=== PATIENT | male | born 1975 | race Caucasian/White ===

== ENCOUNTER 2017-05-29 20:06 | Emergency (ER) | payer OTHER ==
[2017-05-29] MEDS ORDERED: Sodium Chloride 0.9% 2.5 ML Syringe FLUSH PRN (20:26)
[2017-05-29] MEDS ORDERED: Sodium Chloride 0.9% 10 ML Syringe FLUSH PRN (20:26)
[2017-05-29] MEDS ORDERED: Ondansetron 4 MG/2 ML SDV IVPUSH ONE (20:27)
[2017-05-29] MEDS ORDERED: Sodium Chloride 0.9% 1,000 ML IV ONE (20:27)
[2017-05-29] MEDS ORDERED: Morphine 2 MG/ML Syringe IVPUSH ONE ×2 (20:27→22:10)
--- NOTE | 2017-05-29 20:32 | EDM.PDOC ---
<Mary Parsons - Last Filed: 05/29/17 20:28> ED HPI GENERAL MEDICAL PROBLEM - General Chief Complaint: Genitourinary Problem Stated Complaint: PT HAS GROIN PAIN Time Seen by Provider: 05/29/17 20:28 Source of Information: Reports: Patient History Limitations: Reports: No Limitations - History of Present Illness INITIAL COMMENTS - FREE TEXT/NARRATIVE: HISTORY AND PHYSICAL: 42-year-old male presents with right testicular pain History of Present Illness: []Patient has significant history of left groin pain and several surgical procedures to the left testicle along with previous torsion Patient has lived in [place] for one year. Recently was in [place] and [place] and this is where his surgeries have been completed Patient works mainly at a desk is not been lifting heavy objects, causing any other difficulties. Pain has worsened throughout the day. Review of Systems: As per history of present illness and below otherwise all systems reviewed and negative. Past medical history: As per history of present illness and as reviewed below otherwise noncontributory. Surgical history: As per history of present illness and as reviewed below otherwise noncontributory. Social history: No reported history of drug or alcohol abuse. Family history: As per history of present illness and as reviewed below otherwise noncontributory. Physical exam: Alert and oriented male, very well spoken. We can in full sentences without any shortness of breath. Nontoxic. HEENT: Atraumatic, normocehpalic, pupils reactive, negative for conjunctival pallor or scleral icterus, mucous membranes moist, throat clear, neck supple, nontender, trachea midline. Lungs: Clear to auscultation, breath sounds equal bilaterally, chest non tender. Heart: S1S2, regular, negative for clicks, rubs, or JVD. Abdomen: Soft, nondistended, nontender. Negative for masses or hepatossplenmegaly. Negative for costovertebral tenderness. Pelvis: Stable nontender. Genitourinary: Right testicle is exquisitely tender. No torsion is noted on examination. Rectal: Deferred Extremities: Atraumatic, negative for cords or calf pain. Neurovascular unremarkable. Neuro: Awake, alert, oriented. Cranial nerves II through XII unremarkable. Cerebellum unremarkable. Motor and sensory unremarkable throughout. Exam nonfocal. Diagnostics: [us right testicle] Therapeutics: [IV saline, Zofran, morphine] Impression: [Right Testicular pain] Plan: [] Definitive disposition and diagnosis as appropriate pending reevaluation and review of above. Right Groin Pain Score (Numeric/FACES): 8 - Related Data Allergies Allergy/AdvReac Type Severity Reaction Status Date / Time No Known Allergies Allergy Verified 05/29/17 20:26 Home Meds: Home Meds Doxycycline [Vibramycin] 100 mg PO Q12HR #20 cap 05/29/17 [Rx] Levothyroxine 1 tab PO DAILY 05/29/17 [History] Course - Vital Signs Last Recorded V/S: Last Vital Signs Temp 36.6 C 05/29/17 23:34 Pulse 63 05/29/17 23:34 Resp 18 05/29/17 23:34 BP 135/86 05/29/17 23:34 Pulse Ox 98 05/29/17 23:34 - Orders/Labs/Meds Orders: Active Orders 24 hr Category Date Time Status Scrotal Duplex Ltd [US] Routine Exams 05/29/17 20:52 Ordered Testicular US [Scrotum and Contents] [US] Stat Exams 05/29/17 20:26 Taken Saline Lock Insert [OM.PC] Stat Oth 05/29/17 20:26 Ordered Labs: Laboratory Tests 05/29/17 05/29/17 05/29/17 Range/Units 20:00 20:59 20:59 WBC 6.55 (4.0-11.0) K/uL RBC 5.09 (4.50-5.90) M/uL Hgb 14.8 (13.0-17.0) g/dL Hct 42.1 (38.0-50.0) % MCV 82.7 (80.0-98.0) fL MCH 29.1 (27.0-32.0) pg MCHC 35.2 (31.0-37.0) g/dL RDW Std Deviation 38.2 (28.0-62.0) fl RDW Coeff of Ronald 13 (11.0-15.0) % Plt Count 219 (150-400) K/uL MPV 9.60 (7.40-12.00) fL Neut % (Auto) 58.0 (48.0-80.0) % Lymph % (Auto) 31.1 (16.0-40.0) % [place] % (Auto) 8.9 (0.0-15.0) % Eos % (Auto) 1.5 (0.0-7.0) % Baso % (Auto) 0.5 (0.0-1.5) % Neut # (Auto) 3.8 (1.4-5.7) K/uL Lymph # (Auto) 2.0 (0.6-2.4) K/uL [place] # (Auto) 0.6 (0.0-0.8) K/uL Eos # (Auto) 0.1 (0.0-0.7) K/uL Baso # (Auto) 0.0 (0.0-0.1) K/uL Nucleated RBC % 0.0 /100WBC Nucleated RBCs # 0 K/uL Sodium 140 (136-146) mmol/L Potassium 4.5 (3.5-5.1) mmol/L Chloride 107 (98-110) mmol/L Carbon Dioxide 25 (21-31) mmol/L BUN 11 (6.0-23.0) mg/dL Creatinine 1.1 (0.6-1.5) mg/dL Est Cr Clr Drug Dosing 94.06 mL/min Estimated GFR (MDRD) > 60.0 ml/min Glucose 90 (60-110) mg/dL Calcium 9.4 (8.8-10.8) mg/dL Total Bilirubin 0.4 (0.1-1.5) mg/dL AST 22 (5-40) IU/L ALT 44 (8-54) IU/L Alkaline Phosphatase 51 (40-150) Total Protein 7.2 (6.0-8.0) g/dL Albumin 4.3 (3.5-5.0) g/dL Globulin 2.9 (2.0-3.5) g/dL Albumin/Globulin Ratio 1.5 (1.3-2.8) Urine Color YELLOW Urine Appearance CLEAR Urine pH 7.0 (5.0-8.0) Ur Specific [place] 1.015 (1.001-1.035) Urine Protein NEGATIVE (NEGATIVE) mg/dL Urine Glucose (UA) NEGATIVE (NEGATIVE) mg/dL Urine Ketones NEGATIVE (NEGATIVE) mg/dL Urine Occult Blood NEGATIVE (NEGATIVE) Urine Nitrite NEGATIVE (NEGATIVE) Urine Bilirubin NEGATIVE (NEGATIVE) Urine Urobilinogen 0.2 (<2.0) EU/dL Ur Leukocyte Esterase NEGATIVE (NEGATIVE) Urine RBC 0-1 (0-2/HPF) Urine WBC 0-2 (0-5/HPF) Ur Epithelial Cells RARE (NONE-FEW) Urine Bacteria RARE (NEGATIVE) Meds: Medications Discontinued Medications Generic Name Dose Route Start Last Admin Trade Name Freq PRN Reason Stop Dose Admin Hydrocodone Bitart/Acetaminophen 1 tab 05/29/17 23:27 05/30/17 04:44 [place] 325-5 Mg PO 05/29/17 23:28 1 tab ONETIME ONE Administration Doxycycline Hyclate 100 mg 05/29/17 23:09 05/29/17 23:17 Vibramycin PO 05/29/17 23:10 100 mg ONETIME ONE Administration Sodium Chloride 1,000 mls @ 999 mls/hr 05/29/17 20:27 05/29/17 20:45 Normal Saline IV 05/29/17 21:27 999 mls/hr STAT ONE Administration Ceftriaxone Sodium 250 mg/ 1 mls @ 1 mls/sec 05/29/17 23:09 05/29/17 23:19 Lidocaine HCl IM 05/29/17 23:10 1 mls/sec ONETIME ONE Administration Morphine Sulfate 2 mg 05/29/17 20:27 05/29/17 20:47 Morphine IVPUSH 05/29/17 20:28 2 mg ONETIME ONE Administration Morphine Sulfate 2 mg 05/29/17 22:10 05/29/17 22:20 Morphine IVPUSH 05/29/17 22:11 2 mg ONETIME ONE Administration Ondansetron HCl 4 mg 05/29/17 20:27 05/29/17 20:46 Zofran IVPUSH 05/29/17 20:28 4 mg ONETIME ONE Administration Sodium Chloride 10 ml 05/29/17 20:26 Saline Flush FLUSH ASDIRECTED PRN Keep Vein Open Sodium Chloride 2.5 ml 05/29/17 20:26 Saline Flush FLUSH ASDIRECTED PRN Keep Vein Open Departure - Departure Disposition: Home, Self-Care 01 Clinical Impression: Epididymitis, Scrotal pain - Discharge Information Prescriptions: Doxycycline [Vibramycin] 100 mg PO Q12HR #20 cap Instructions: Epididymitis Referrals: PCP,None [Primary Care Provider] - Cate Malin MD [Physician] - Forms: ED Department Discharge Additional Instructions: you have epididymitis. This is inflammationof the epididymiswhich is a structure adjacent to your testicle. This is typically from an infection and we' ve given you antibiotics to treat this. Take ibuprofen 800 mg every 6 hours and Tylenol every 4 hours as needed for pain. Finish antibiotic twice a day for 10 days as prescribedand follow-up with your Dr. in one to 2 days for reevaluation. Also follow-up with Dr. Cate Malin, our urologist. Call in the morning for an appointment in the next one to 2 days. Return immediately for new severe or worsening symptoms - My Orders Last 24 Hours: My Active Orders 05/29/17 20:52 Scrotal Duplex Ltd [US] Routine - Assessment/Plan Last 24 Hours: My Active Orders 05/29/17 20:52 Scrotal Duplex Ltd [US] Routine <Andres Marmolejo - Last Filed: 05/30/17 09:39> ED HPI GENERAL MEDICAL PROBLEM - History of Present Illness INITIAL COMMENTS - FREE TEXT/NARRATIVE: SUBHA Duke attending no Dr. Andres Marmolejo. Care assumed by me at 2200 to follow ultrasound results reevaluate and disposition patient.Ultrasound with no torsion but radiographic evidence of right sided epididymitisantibiotic treatment initiated. Prescription dispensed. Patient aware to take Motrin Tylenol do scrotal support and follow-up with the urologist Dr. Cate malin. on reevaluation his scrotum is unremarkable appearing he doesn't some tenderness in the right adnexaNo skin changes soft nontender perennial left testicle unremarkable. No penile discharge. No further workup or treatment indicated. Patient agrees with outpatient follow-up and strict return precautions given ED ROS GENERAL - Review of Systems Review Of Systems: See Below (history of present illness) ED EXAM, RENAL/ - Physical Exam Exam: See Below (history of present illness) Departure - Departure Time of Disposition: 23:14 Condition: Good - My Orders Last 24 Hours: My Active Orders 05/29/17 20:52 Scrotal Duplex Ltd [US] Routine - Assessment/Plan Last 24 Hours: My Active Orders 05/29/17 20:52 Scrotal Duplex Ltd [US] Routine
[2017-05-29 21:34] LABS: CHLORIDE,CL 107 mmol/L (98-110); SODIUM,NA 140 mmol/L (136-146)
[2017-05-29] MEDS ORDERED: Doxycycline 100 MG Cap PO ONE (23:09)
[2017-05-29] MEDS ORDERED: cefTRIAXone 250 MG in Lidocaine 1% 1 ML IM ONE (23:09)
[2017-05-29] MEDS ORDERED: Acetaminophen/HYDROcodone 325-5 MG Tab PO ONE (23:27)
[2017-05-30 04:51] VITALS: BP 135/86
--- NOTE | 2017-05-30 12:01 | US ---
EXAM DATE: 05/29/17 PATIENT'S AGE: 42 Patient: GREG RAHMAN Facility: [place], [place] Site . Site : 1975 Study: US Testicle [id number] 9:54:25 PM Ordering Physician: Doctor Moreland Final Report: INDICATION: RT TESTI PAIN HISTORY: Testicular pain and swelling. COMPARISON: None. TECHNIQUE: Scrotal ultrasound. 2D and color Doppler interrogation was obtained. Color Doppler was performed to evaluate blood flow to the testes. FINDINGS: The right testis measures 5.2 x 2.4 x 4.1 cm. There is no intratesticular mass. There is no evidence for testicular torsion. The left testis measures 5.0 x 2.9 x 3.8 cm. No evidence for testicular torsion. There is no overlying scrotal wall thickening. No drainable fluid collection. Questionable right-sided varicocele, which is of uncertain significance. The left epididymis measures 1.3 x 0.9 x 0.9 cm. The right epididymis measures 1.5 x 1.7 x 1.4 cm. IMPRESSION: 1. Testes are negative for intratesticular mass or evidence for torsion. 2. Mild enlargement of the right epididymis. This could represent epididymitis. 3. Questionable right-sided varicocele. A unilateral right varicocele is rare, and a CT may be obtained on a nonemergent basis to exclude a mass compressing the testicular vein. Dictated by Michael Stallings MD @ 05/29/2017 10:17:08 PM Dictated by: Michael Stallings MD @ 05/29/2017 22:17:15 (Electronic Signature) Report Signed by Proxy. JACQUELINE
--- NOTE | 2017-05-30 12:01 | US ---
EXAM DATE: 05/29/17 PATIENT'S AGE: 42 Patient: GREG RAHMAN Facility: [place], [place] Site . Site : 1975 Study: US Testicle [id number] 9:54:25 PM Ordering Physician: Doctor Moreland Final Report: INDICATION: RT TESTI PAIN HISTORY: Testicular pain and swelling. COMPARISON: None. TECHNIQUE: Scrotal ultrasound. 2D and color Doppler interrogation was obtained. Color Doppler was performed to evaluate blood flow to the testes. FINDINGS: The right testis measures 5.2 x 2.4 x 4.1 cm. There is no intratesticular mass. There is no evidence for testicular torsion. The left testis measures 5.0 x 2.9 x 3.8 cm. No evidence for testicular torsion. There is no overlying scrotal wall thickening. No drainable fluid collection. Questionable right-sided varicocele, which is of uncertain significance. The left epididymis measures 1.3 x 0.9 x 0.9 cm. The right epididymis measures 1.5 x 1.7 x 1.4 cm. IMPRESSION: 1. Testes are negative for intratesticular mass or evidence for torsion. 2. Mild enlargement of the right epididymis. This could represent epididymitis. 3. Questionable right-sided varicocele. A unilateral right varicocele is rare, and a CT may be obtained on a nonemergent basis to exclude a mass compressing the testicular vein. Dictated by Michael Stallings MD @ 05/29/2017 10:17:08 PM Dictated by: Michael Stallings MD @ 05/29/2017 22:17:15 (Electronic Signature) Report Signed by Proxy. JACQUELINE
== END 2017-05-30 00:16 | disposition home or self-care (01) ==
LOC: MW.ED 20:06
DX: N45.1 Epididymitis (principal)
CPT/HCPCS: 36415; 76870; 80053; 81001; 85025; 93976; 96361; 96372; 96374; 96375; 96376; 99284; A9270; J0696; J2270; J2405; J7040; 99283

== ENCOUNTER 2022-04-08 08:30 | Day surgery (SDC) | payer BC, OTHER ==
[~2022-04-08 08:30] MED LIST: Lactated Ringers 1,000 ML IV SCH; Sodium Chloride 0.9% 10 ML Syringe FLUSH PRN; Sodium Chloride 0.9% 2.5 ML Syringe FLUSH PRN; Sodium Chloride 0.9% 20 ML SDV IV PRN
[2022-04-08] MEDS ORDERED: propofoL 50 ML ONE (10:17)
[2022-04-08] MEDS ORDERED: fentaNYL 100 MCG/2 ML SDV ONE (10:18)
[2022-04-08] MEDS ORDERED: Lidocaine 2% 5 ML SDV ONE (10:18)
[2022-04-08 12:05] VITALS: BP 120/70; PULSE 63
== END 2022-04-08 12:07 | disposition home or self-care (01) ==
LOC: MW.SDS 08:30
PROVIDERS: ATTEND Surgery
DX: Z12.11 Encounter for screening for malignant neoplasm of colon (principal); K21.00 Gastro-esophageal reflux disease with esophagitis, without bleeding; K29.50 Unspecified chronic gastritis without bleeding; K29.80 Duodenitis without bleeding; K63.5 Polyp of colon; I10 Essential (primary) hypertension; E03.9 Hypothyroidism, unspecified; M19.90 Unspecified osteoarthritis, unspecified site; I25.2 Old myocardial infarction; Z79.890 Hormone replacement therapy; Z80.0 Family history of malignant neoplasm of digestive organs; Z79.1 Long term (current) use of non-steroidal anti-inflammatories (NSAID); Z90.49 Acquired absence of other specified parts of digestive tract; Z98.890 Other specified postprocedural states; Z87.891 Personal history of nicotine dependence
CPT/HCPCS: 43239; 45380; J2704; J3010; J7120; 00813